=== PATIENT | female | born 1950 | race Two or more races ===

== ENCOUNTER 2021-09-08 20:52 | Emergency (ER) | payer MEDICARE, BC ==
[2021-09-08] MEDS ORDERED: traMADol 50 MG Tab PO ONE (21:55)
== END 2021-09-09 00:14 | disposition home or self-care (01) ==
LOC: JD.ED 20:52
DX: S52.502A Unspecified fracture of the lower end of left radius, initial encounter for closed fracture (principal); I10 Essential (primary) hypertension; I48.91 Unspecified atrial fibrillation; Z86.73 Personal history of transient ischemic attack (TIA), and cerebral infarction without residual deficits; Z28.310 Unvaccinated for COVID-19; Z88.8 Allergy status to other drugs, medicaments and biological substances; W01.0XXA Fall on same level from slipping, tripping and stumbling without subsequent striking against object, initial encounter; Y92.009 Unspecified place in unspecified non-institutional (private) residence as the place of occurrence of the external cause
CPT/HCPCS: 29125; 36415; 73110; 85610; 99283; A9270

== ENCOUNTER 2021-12-31 09:36 | Emergency (ER) | payer MEDICARE, BC ==
[2021-12-31] MEDS ORDERED: Dextrose 5%-Lactated Ringers 1,000 ML IV SCH (10:45)
[2021-12-31 11:51] LABS: ESTIMATED GFR 78 mL/min (>60)
[2021-12-31] MEDS ORDERED: diphenhydrAMINE 50 MG/ML SDV IVPUSH PRN (12:05)
[2021-12-31] MEDS ORDERED: Famotidine 20 MG/2 ML SDV IVPUSH PRN (12:05)
[2021-12-31] MEDS ORDERED: EPINEPHrine 1 MG/ML SDV IM PRN (12:05)
[2021-12-31] MEDS ORDERED: methylPREDNISolone Sodium Succinate 125 MG/2 ML SDV IVPUSH PRN (12:05)
[2021-12-31] MEDS ORDERED: Sodium Chloride 0.9% 10 ML Syringe FLUSH SCH (12:15)
[2021-12-31 14:13] LABS: CORONAVIRUS COVID-19 NAA POSITIVE (NEGATIVE)
== END 2021-12-31 14:04 | disposition home or self-care (01) ==
LOC: JD.ED 09:36
DX: U07.1 COVID-19 (principal)
CPT/HCPCS: 0241U; 36415; 71045; 80053; 83735; 83880; 85025; 85610; 86140; 96360; 99284; J7121; M0222; Q0222

== ENCOUNTER 2024-04-15 10:44 | Day surgery (SDC) | payer MEDICARE, BC ==
[2024-04-15] MEDS: Polymyxin B/Trimethoprim 10 ML Bottle EYERT SCH (11:42)
[2024-04-15] MEDS: Brimonidine 0.2% Ophth Soln 5 ML Bottle EYERT SCH (11:47)
[2024-04-15] MEDS: Phenylephrine 2.5% Ophth Soln 2 ML Bot EYERT SCH (11:53)
[2024-04-15] MEDS: Tropicamide 1% Ophth Soln 3 ML Bottle EYERT SCH (11:57)
[2024-04-15] MEDS: Tetracaine HCl/PF 0.5% 4 ML Bottle EYEBOTH SCH (13:15)
[2024-04-15] MEDS: Lidocaine 1% PF 2 ML SDV INJECT SCH (13:30)
[2024-04-15] MEDS: Cefuroxime 10 MG/ML SYRINGE EYERT SCH (13:47)
[2024-04-15] MEDS: Pilocarpine 4% Ophth Soln 15 ML Bot EYERT SCH (13:48)
== END 2024-04-15 14:07 | disposition home or self-care (01) ==
LOC: JD.SDS 10:44
PROVIDERS: ATTEND Ophthalmology
DX: H26.9 Unspecified cataract (principal)
CPT/HCPCS: 00142; 99100; A9270-GY; J0697; J3490; V2632

== ENCOUNTER 2025-03-21 07:40 | Day surgery (SDC) | payer MEDICARE, BC ==
[~2025-03-21 07:40] MED LIST: Sodium Chloride 0.9% 10 ML Syringe FLUSH PRN; Sodium Chloride 0.9% 10 ML Syringe FLUSH SCH; propofoL 500 MG/50 ML 50 ML ONE
[2025-03-21] MEDS ORDERED: dexmedeTOMIDine HCl 200 MCG/2 ML SDV ONE (07:51)
[2025-03-21] MEDS ORDERED: EPINEPHrine 1 MG/ML SDV ONE (07:51)
[2025-03-21] MEDS ORDERED: Ropivacaine 0.5% 5 MG/ML 30 ML SDV ONE (07:51)
[2025-03-21] MEDS ORDERED: Ketorolac 30 MG/ML SDV ONE (07:52)
[2025-03-21] MEDS ORDERED: Dexamethasone 4 MG/ML 5 ML MDV ONE (07:52)
[2025-03-21] MEDS ORDERED: Ondansetron 4 MG/2 ML SDV ONE (07:52)
[2025-03-21] MEDS: Lactated Ringers 1,000 ML IV SCH (08:30)
[2025-03-21] MEDS ORDERED: Propofol 200 MG/20 ML SDV ONE ×2 (08:34→10:29)
[2025-03-21 08:58] LABS: INR 1.09
[2025-03-21 08:59] LABS: PTT,PARTIAL THROMBOPLSTIN TIME 28.5 SECONDS (21.7-31.4)
[2025-03-21] MEDS ORDERED: Labetalol 100 MG/20 ML MDV ONE (09:33)
[2025-03-21] MEDS ORDERED: fentaNYL 100 MCG/2 ML SDV ONE (09:33)
[2025-03-21] MEDS ORDERED: ePHEDrine 50 MG/ML SDV ONE ×2 (09:38→10:20)
[2025-03-21] MEDS ORDERED: Lactated Ringers 1,000 ML ONE (10:27)
[2025-03-21] MEDS: Morphine 8 MG, EPINEPHrine 0.3 MG, Cefuroxime 750 MG, Ketorolac 30 MG, Sodium Chloride ... PRN (10:29)
[2025-03-21] MEDS ORDERED: Ondansetron 4 MG/2 ML SDV IVPUSH PRN (11:10)
[2025-03-21] MEDS ORDERED: fentaNYL 100 MCG/2 ML SDV IVPUSH PRN (11:10)
== END 2025-03-21 15:05 | disposition home or self-care (01) ==
LOC: JD.SDS 07:40
PROVIDERS: ATTEND Orthopaedic Surgery
DX: M17.11 Unilateral primary osteoarthritis, right knee (principal); I48.0 Paroxysmal atrial fibrillation; I11.0 Hypertensive heart disease with heart failure; I50.9 Heart failure, unspecified; E03.9 Hypothyroidism, unspecified; Z88.8 Allergy status to other drugs, medicaments and biological substances; Z79.01 Long term (current) use of anticoagulants; Z79.899 Other long term (current) drug therapy; Z79.890 Hormone replacement therapy
CPT/HCPCS: 0055T; 27447; 36415; 64447; 73560; 85610; 85730; 97116; 97161; 97530; A9270; C1713; C1776; J0169; J0690; J0697; J1100; J1885; J1920; J2272; J2405; J2704; J2795; J3010; J3373; J7120; 01402; 99100; J3490